=== PATIENT | female | born 1990 | race Two or more races ===

== ENCOUNTER 2025-02-10 05:40 | Emergency (ER) | payer OTHER ==
[~2025-02-10] VITALS: Ht 152.4 cm; Wt 62.6 kg
[2025-02-10] MEDS ORDERED: OBSTETRIX EC C1 EAC1 PO (06:02)
[2025-02-10] MEDS ORDERED: FAMOTIDINE/PF 20 MG/2 ML VIAL IV PUSH STA (06:41)
[2025-02-10] MEDS ORDERED: PROMETHAZINE HCL 50 MG/ML AMPUL IM STA (06:41)
[2025-02-10] MEDS ORDERED: LACTOBACILLUS ACIDOPHILUS 1 CAP CAP PO STA (06:42)
[2025-02-10] MEDS ORDERED: 0.9 % SODIUM CHLORIDE 1,000 ML IV ONE (06:45)
[2025-02-10] MEDS ORDERED: PROMETHAZINE HCL 50 MG/ML AMPUL IM ONE (07:04)
[2025-02-10] MEDS ORDERED: FAMOTIDINE/PF 20 MG/2 ML VIAL ONE (07:05)
[2025-02-10] MEDS ORDERED: LACTOBACILLUS ACIDOPHILUS 1 CAP CAP PO ONE (07:05)
[2025-02-10 08:36] VITALS: BP 104/71; O2SAT 100
[2025-02-10 08:48] LABS: BUN CREA RATIO 20.0 (7.0-25.0); CREATININE SERUM 0.59 mg/dL (0.55-1.02); GFR 118.12; GLUCOSE FASTING 109.0 mg/dL (65-100); OSMOLALITY SERUM 276.0 MOSM/KG (275-295)
[2025-02-10 09:14] LABS: BASO % 0.2 % (0.1-1.2); EOS # 0.00 (0.04-0.54); EOS % 0.0 % (0.7-7.0); LYMPH # 0.39 (1.18-3.74); LYMPH % 3.2 % (19.3-53.1); MEAN PLATELET VOLUME 9.50 fl (9.4-12.4); MONO # 0.40 (0.24-0.82); MONO % 3.3 % (4.7-12.5); NEUT # 11.18 (1.56-6.13); NEUT % 92.6 % (34.0-71.1); RED CELL DISTRIBUTION WIDTH 12.8 % (11.6-14.4)
[2025-02-10] MEDS ORDERED: ONDANSETRON HCL 2 MG/ML VIAL IV STA (10:54)
[2025-02-10 12:49] LABS: URINE APPEARANCE Clear; URINE BILIRRUBIN Negative (NEGATIVE); URINE BLOOD Negative; URINE COLOR Yellow; URINE GLUCOSE Negative (NEGATIVE); URINE LEUKOCYTE Trace; URINE NITRATE Negative; URINE PROTEIN Trace (NEGATIVE); URINE UROBILINOGEN 0.2 E.U./dl
[2025-02-10 12:53] LABS: URINE BACTERIA 1262.4 uL (0.0-1933); URINE EPITHELIAL CELLS 41.8 uL (0.0-38.8); URINE RBC 19.6 uL (0.0-20.8); URINE WBC 23.3 uL (0.0-23.2)
[2025-02-10 13:08] LABS: URINE CAST 0.00 uL (0.0-1.40); URINE KETONE 80 (NEGATIVE)
[2025-02-10 13:16] LABS: TYPE CELLS SQUAMOUS
== END 2025-02-10 15:54 | disposition home or self-care (01) ==
LOC: ER 05:40
PROVIDERS: General Practice
DX: O21.0 Mild hyperemesis gravidarum (principal); Z3A.12 12 weeks gestation of pregnancy; A08.8 Other specified intestinal infections